=== PATIENT | male | born 1955 | race Two or more races ===

== ENCOUNTER 2023-08-15 07:57 | Emergency (ER) | payer OTHER ==
[~2023-08-15] VITALS: Ht 175.3 cm; Wt 78.9 kg
[2023-08-15] MEDS ORDERED: KETOROLAC TROMETHAMINE 60 MG VIAL IM STA (09:22)
[2023-08-15] MEDS ORDERED: KETOROLAC TROMETHAMINE 60 MG VIAL IM ONE (09:32)
[2023-08-15 10:23] LABS: HEMATOCRIT 42.4 % (39.0-48.0); HEMOGLOBIN 14.2 g/dL (13-16.00); MEAN CELL VOLUME 86.4 fL (80.0-100.00); MEAN CORPUSCULAR HGB CONC 33.5 g/dl (32.0-36.0); PLATELET COUNT 191 K/uL (150-450); RED CELL DISTRIBUTION WIDTH 14.3 % (11.5-14.5)
[2023-08-15 10:26] LABS: URINE APPEARANCE Clear; URINE BILIRRUBIN Negative (NEGATIVE); URINE BLOOD Moderate; URINE COLOR Yellow; URINE GLUCOSE Negative (NEGATIVE); URINE LEUKOCYTE Negative; URINE NITRATE Negative; URINE PROTEIN Negative (NEGATIVE); URINE UROBILINOGEN 0.2 E.U./dl
[2023-08-15 10:32] LABS: URINE RBC 3.8 uL (0.0-20.8)
[2023-08-15 10:45] LABS: URINE BACTERIA 3.7 uL (0.0-1933); URINE EPITHELIAL CELLS 0.7 uL (0.0-38.8); URINE WBC 0.7 uL (0.0-23.2)
[2023-08-15 10:46] LABS: CALCIUM 10.3 mg/dL (8.5-10.1); CREATININE SERUM 0.99 mg/dL (0.70-1.30); GFR 74.95; POTASSIUM 4.31 mEq/L (3.5-5.1)
== END 2023-08-15 13:30 | disposition home or self-care (01) ==
LOC: ER 07:58
PROVIDERS: General Practice
DX: N23 Unspecified renal colic (principal); N20.1 Calculus of ureter; E03.9 Hypothyroidism, unspecified